=== PATIENT | male | born 1995 | race Caucasian/White ===

== ENCOUNTER 2018-05-02 16:02 | Emergency (ER) | payer BC ==
[~2018-05-02] VITALS: Ht 172.7 cm; Wt 54.8 kg
[2018-05-02 16:19] VITALS: TEMP 36.9; Ht 172.7 cm; Wt 54.8 kg
--- NOTE | 2018-05-02 17:51 | EMERGENCY ROOM VISIT NOTE ---
History Report prepared by Mariela: Marie Almonte Under the Supervision of: Dr. Mary Ellen Delatorre D.O. First contact with patient: 17:36 Chief Complaint: DIZZY Stated Complaint: DIZZY, SENT BY [facility] Triage Summary: Patient c/o of dizziness since today. History of Present Illness The patient is a 22 year old male who presents to the Emergency Room with complaints of persistent dizziness and head pressure. He states he woke up feeling fine this morning and ate breakfast. He went to class around 0730, where he began to feel dizzy and "off balance", like he would "fall forward if I moved". Denies any spinning. The patient states he felt pressure on his head like he was pulled forward. He denies any tinnitus or vision changes. He denies any recent fevers or illnesses. He went home and did some meditation, and felt better. He notes he experienced a similar episode approximately 1 week ago that resolved on their own. He went to [facility] on campus today for his symptoms and was referred here to the ED for a CT scan. He denies any recent changes in activity or diet. The patient denies any recent ETOH use or illegal drug use. He notes the episodes of dizziness seem to be brought on by reading, but states he saw an eye doctor last week and was told his vision only needed minimal correction. He states he does not feel overly anxious or worried about anything currently. Source of History: patient Onset: this morning Position: other (global) Timing: other (persistent) Modifying Factors (Worsening): other (reading) Modifying Factors (Relieving): other (meditation) Associated Symptoms: + headache, No fevers Review of Systems See HPI for pertinent positives & negatives. A total of 10 systems reviewed and were otherwise negative. Past Medical & Surgical Medical Problems: (1) Acne Family History Alzheimer's disease Dementia Social History Smoking Status: Never Smoker Alcohol Use: none Drug Use: none Marital Status: single Housing Status: lives with roommate Occupation Status: [employer] student Current/Historical Medications Scheduled Adapalene-Benzoyl Peroxide (Epiduo Forte 0.3-2.5 %), 1 APPLN TOP DAILY Allergies Coded Allergies: POLLEN (Unverified Allergy, Intermediate, ., 05/02/18) Physical Exam Vital Signs Date Time Temp Pulse Resp B/P (MAP) Pulse Ox O2 Delivery O2 Flow Rate FiO2 05/02/18 19:15 59 14 134/81 100 Room Air 05/02/18 16:19 36.9 81 18 129/79 99 Room Air Physical Exam GENERAL: alert, anxious appearing, thin build, no distress, non-toxic EYE EXAM: normal conjunctiva, PERRL and EOM's grossly intact, no nystagmus OROPHARYNX: no exudate, no erythema, lips, buccal mucosa, and tongue normal and mucous membranes are moist NECK: supple, no nuchal rigidity, no adenopathy, non-tender LUNGS: Clear to auscultation. Normal chest wall mechanics HEART: no murmurs, S1 normal and S2 normal ABDOMEN: abdomen soft, non-tender, normo-active bowel sounds, no masses, no rebound or guarding. BACK: Back is symmetrical on inspection and there is no deformity, no midline tenderness, no CVA tenderness. SKIN: no rashes and no bruising UPPER EXTREMITIES: upper extremities are grossly normal. LOWER EXTREMITIES: No pitting edema. NEURO EXAM: Normal sensorium, cranial nerves II-XII grossly intact, normal speech, no gross weakness of arms, no gross weakness of legs. No drift. Finger to nose intact. Gross sensation intact. Normal gait, no ataxia. Medical Decision & Procedures ER Provider Diagnostic Interpretation: Radiology results have been interpreted by the radiologist and reviewed by me. HEAD WITHOUT CONTRAST (CT) CLINICAL HISTORY: 22 years-old Male with dizzy, porter. Acute headache with dizziness TECHNIQUE: Multiple axial CT images of the head were obtained without contrast. A dose lowering technique was utilized adhering to the principles of ALARA. CT DOSE: 537.48 mGy.cm COMPARISON: None. FINDINGS: No acute intracranial hemorrhage, midline shift, intracranial mass, hydrocephalus, territorial ischemia or abnormal extra-axial collection. The calvarium is intact. The paranasal sinuses, mastoid air cells, and middle ear cavities are clear. IMPRESSION: No acute intracranial abnormality. The above report was generated using voice recognition software. It may contain grammatical, syntax or spelling errors. Electronically signed by: Homar Terrazas M.D. 05/02/2018 6:11 PM Laboratory Results 05/02/18 18:00 Red Blood Count 5.30, Mean Corpuscular Volume 87.2, Mean Corpuscular Hemoglobin 30.6, Mean Corpuscular Hemoglobin Concent 35.1, Mean Platelet Volume 11.3, Neutrophils (%) (Auto) 61.3, Lymphocytes (%) (Auto) 30.1, Monocytes (%) (Auto) 7.1, Eosinophils (%) (Auto) 1.1, Basophils (%) (Auto) 0.2, Neutrophils # (Auto) 3.20, Lymphocytes # (Auto) 1.57, Monocytes # (Auto) 0.37, Eosinophils # (Auto) 0.06, Basophils # (Auto) 0.01 05/02/18 18:00 Test 05/02/18 18:00 White Blood Count 5.22 K/uL (4.8-10.8) Red Blood Count 5.30 M/uL (4.7-6.1) Hemoglobin 16.2 g/dL (14.0-18.0) Hematocrit 46.2 % (42-52) Mean Corpuscular Volume 87.2 fL (80-100) Mean Corpuscular Hemoglobin 30.6 pg (25-34) Mean Corpuscular Hemoglobin Concent 35.1 g/dl (32-36) Platelet Count 193 K/uL (130-400) Mean Platelet Volume 11.3 fL (7.4-10.4) Neutrophils (%) (Auto) 61.3 % Lymphocytes (%) (Auto) 30.1 % Monocytes (%) (Auto) 7.1 % Eosinophils (%) (Auto) 1.1 % Basophils (%) (Auto) 0.2 % Neutrophils # (Auto) 3.20 K/uL (1.4-6.5) Lymphocytes # (Auto) 1.57 K/uL (1.2-3.4) Monocytes # (Auto) 0.37 K/uL (0.11-0.59) Eosinophils # (Auto) 0.06 K/uL (0-0.5) Basophils # (Auto) 0.01 K/uL (0-0.2) RDW Standard Deviation 39.2 fL (36.4-46.3) RDW Coefficient of Variation 12.3 % (11.5-14.5) Immature Granulocyte % (Auto) 0.2 % Immature Granulocyte # (Auto) 0.01 K/uL (0.00-0.02) Anion Gap 10.0 mmol/L (3-11) Est Creatinine Clear Calc Drug Dose 87.0 ml/min Estimated GFR () 117.9 Estimated GFR (Non- 101.7 BUN/Creatinine Ratio 16.9 (10-20) Calcium Level 8.8 mg/dl (8.5-10.1) Magnesium Level 2.1 mg/dl (1.8-2.4) Total Bilirubin 0.5 mg/dl (0.2-1) Aspartate Amino Transf (AST/SGOT) 23 U/L (15-37) Alanine Aminotransferase (ALT/SGPT) 31 U/L (12-78) Alkaline Phosphatase 77 U/L (45-117) Total Protein 8.4 gm/dl (6.4-8.2) Albumin 4.8 gm/dl (3.4-5.0) Globulin 3.6 gm/dl (2.5-4.0) Albumin/Globulin Ratio 1.3 (0.9-2) Thyroid Stimulating Hormone (TSH) 1.080 uIu/ml (0.300-4.500) Chemistry Specimen Hemolysis Laboratory results per my review. ED Course 1739: The patient was evaluated in room C10. A complete history and physical exam was performed. 2044: I reevaluated the patient. He is feeling well and resting comfortably. I discussed his results and discharge instructions and he verbalized complete understanding and agreement. Medical Decision Differential diagnosis includes etiologies such as benign positional vertigo, dehydration, hypovolemia, anemia, tumor, infection, hypoglycemia, electrolyte abnormalities, cardiac sources, intracerebral event, toxicologic, neurologic, as well as others were entertained. Patient well-appearing here and feels low risk for any additional central pathology not seen on CT today. Patient with a normal nonfocal neuro exam at bedside. Labs and imaging here reassuring, patient hemo-dynamically stable throughout. Patient states he was feeling slightly better although still felt a slight discomfort in his head. I discussed with him follow-up with [facility] or his family doctor, symptoms to watch and return for, adequate diet and hydration , and encouraged him to continue regular exercise and meditation. Patient is slightly anxious appearing here and describes a very busy schedule and a sense of great responsibility heading into the semester, I discussed with him that his anxiety can also manifest as dizziness and headaches. I do not suspect any cardiac or metabolic etiology for his dizziness. No palpitations or chest discomfort reported, no ectopy or dysrhythmia noted. Patient well-appearing at time of discharge, ambulatory with a steady gait, tolerated p.o. without difficulty, he was aware of all results was agreeable with plan. Medication Reconcilliation Current Medication List: was personally reviewed by me Blood Pressure Screening Patient's blood pressure: Normal blood pressure Blood pressure disposition: Did not require urgent referral Impression Primary Impression: Dizziness Additional Impression: Pressure in head Scribe Attestation The scribe's documentation has been prepared under my direction and personally reviewed by me in its entirety. I confirm that the note above accurately reflects all work, treatment, procedures, and medical decision making performed by me. Departure Information Dispostion Home / Self-Care Patient Instructions ED Dizziness [facility], Headache Pain, My [facility] Additional Instructions Please make sure staying well-hydrated, you may eat normally. Please continue to monitor for any changing symptoms. If you develop recurrent or worsening headaches, recurrent episodes of dizziness, blackout or pass out, develop fevers , vomiting, trouble breathing, abdominal pain, you have any other new concerns, please return the emergency room. Problem Qualifiers
[2018-05-02] MEDS ORDERED: ADAP0.05 TOP (17:58)
[2018-05-02] MEDS ORDERED: ADAP0.054 TOP (17:59)
[2018-05-02 18:19] LABS: BASO % 0.2 %; BASO ABS # 0.01 K/uL (0-0.2); EOS % 1.1 %; EOS ABS # 0.06 K/uL (0-0.5); HEMATOCRIT 46.2 % (42-52); HEMOGLOBIN 16.2 g/dL (14.0-18.0); IG# 0.01 K/uL (0.00-0.02); LYMPH % 30.1 %; LYMPH ABS # 1.57 K/uL (1.2-3.4); MEAN CELL VOLUME 87.2 fL (80-100); MEAN CORPUSCULAR HEMOGLOBIN 30.6 pg (25-34); MEAN CORPUSCULAR HGB CONC 35.1 g/dl (32-36); MEAN PLATELET VOLUME 11.3 fL (7.4-10.4); MONO % 7.1 %; MONO ABS # 0.37 K/uL (0.11-0.59); NEUT % 61.3 %; PLATELET COUNT 193 K/uL (130-400); RED CELL DISTRIBUTION WIDTH CV 12.3 % (11.5-14.5); RED CELL DISTRIBUTION WIDTH SD 39.2 fL (36.4-46.3); WHITE BLOOD COUNT 5.22 K/uL (4.8-10.8)
[2018-05-02 18:48] LABS: ALBUMIN 4.8 gm/dl (3.4-5.0); CALCIUM 8.8 mg/dl (8.5-10.1); CREATININE 1.05 mg/dl (0.60-1.40); POTASSIUM 3.7 mmol/L (3.5-5.1)
[2018-05-02 18:51] LABS: TOTAL PROTEIN 8.4 gm/dl (6.4-8.2)
[2018-05-02 19:15] VITALS: BP 134/81; PULSE 59; O2SAT 100
--- NOTE | 2018-05-02 20:36 | DIAGNOSTIC IMAGING REPORT ---
HEAD WITHOUT CONTRAST (CT) CLINICAL HISTORY: 22 years-old Male with dizzy, porter. Acute headache with dizziness TECHNIQUE: Multiple axial CT images of the head were obtained without contrast. A dose lowering technique was utilized adhering to the principles of ALARA. CT DOSE: 537.48 mGy.cm COMPARISON: None. FINDINGS: No acute intracranial hemorrhage, midline shift, intracranial mass, hydrocephalus, territorial ischemia or abnormal extra-axial collection. The calvarium is intact. The paranasal sinuses, mastoid air cells, and middle ear cavities are clear. IMPRESSION: No acute intracranial abnormality. The above report was generated using voice recognition software. It may contain grammatical, syntax or spelling errors. Electronically signed by: Homar Terrazas M.D. 05/02/2018 6:11 PM Dictated Date/Time: 05/02/2018 6:09 PM
== END 2018-05-02 21:00 | disposition home or self-care (01) ==
LOC: C.EDB 16:03 → C.EDC 21:00
DX: R42 Dizziness and giddiness (principal); R51 Headache; Z82.0 Family history of epilepsy and other diseases of the nervous system; Z91.048 Other nonmedicinal substance allergy status